=== PATIENT | male | born 1970 | race Caucasian/White ===

== ENCOUNTER 2017-09-12 07:07 | Day surgery (SDC) | payer OTHER ==
[~2017-09-12] VITALS: Ht 170.2 cm; Wt 74.4 kg
[2017-09-12] MEDS ORDERED: GLIP5TER PO (08:22)
[2017-09-12] MEDS ORDERED: GLU500 PO (08:22)
[2017-09-12] MEDS ORDERED: LIDOCAINE 2% 100 MG/5 ML UJET TP ONE (08:45)
[2017-09-12] MEDS ORDERED: fentaNYL 0.05 MG/ML VIAL ONE (09:00)
[2017-09-12] MEDS ORDERED: fentaNYL 0.05 MG/ML VIAL IVP ONE (10:00)
== END 2017-09-12 10:10 | disposition home or self-care (01) ==
LOC: MDS 07:07 → MMU 07:22 → MDS 10:10
PROVIDERS: ATTEND Internal Medicine Gastroenterology
DX: D12.3 Benign neoplasm of transverse colon (principal); E11.9 Type 2 diabetes mellitus without complications; E66.3 Overweight; I10 Essential (primary) hypertension; Z90.49 Acquired absence of other specified parts of digestive tract; F17.210 Nicotine dependence, cigarettes, uncomplicated; Z72.89 Other problems related to lifestyle; Z79.84 Long term (current) use of oral hypoglycemic drugs; Z68.26 Body mass index [BMI] 26.0-26.9, adult
CPT/HCPCS: 45385; 82948; J3010

== ENCOUNTER 2019-05-22 12:48 | Emergency (ER) | payer OTHER ==
[~2019-05-22] VITALS: Ht 170.2 cm; Wt 81.2 kg
[~2019-05-22 12:48] MED LIST: GLIP5TER PO; GLU500 PO
[2019-05-22 12:52] VITALS: BP 153/105
--- NOTE | 2019-05-22 14:03 | NUR ---
Seen PCP today and reffered to ER for cough and shortness of breathe x 3 weeks. Current temperature 98.1. Med hx: DM and Asthma. PATIENT STATES PAIN OF 0/10 AT THIS TIME.PATIENT POSITIONED FOR COMFORT; HOB ELEVATED; BEDRAILS UP X1; BED DOWN. ER MD MADE AWARE OF PT STATUS.
--- NOTE | 2019-05-22 14:04 | NUR ---
Patient ambulated to bed 1. RN evaluating patient at bedside.
--- NOTE | 2019-05-22 14:14 | NUR ---
XRAY AT BEDSIDE
[2019-05-22] MEDS ORDERED: ALBUTEROL 0.083% 2.5 MG/3 ML NEBU INH ONE (15:10)
[2019-05-22] MEDS ORDERED: IPRATROPIUM 0.02% 0.5 MG/2.5 ML NEBU INH ONE (15:10)
--- NOTE | 2019-05-22 15:10 | NUR ---
Patient being reevaluated by DR MCCORD at bedside.
--- NOTE | 2019-05-22 15:25 | NUR ---
RT AT BEDSIDE FOR BREATHING TREATMENT.
--- NOTE | 2019-05-22 15:35 | NUR ---
C/O R BIG TOE PAIN. NOTIFIED DR MCCORD.
--- NOTE | 2019-05-22 15:40 | NUR ---
Patient being reevaluated by DR MCCORD at bedside.
--- NOTE | 2019-05-22 15:54 | NUR ---
Patient discharged with v/s stable. Written and verbal after care instructions given and explained. Patient alert, oriented and verbalized understanding of instructions. Ambulatory with steady gait. All questions addressed prior to discharge. ID band removed. Patient advised to follow up with PMD. Rx of AEROCHAMBER PLUS WITH MASK & PREDNISONE given. Patient educated on indication of medication including possible reaction and side effects. Opportunity to ask questions provided and answered.
[2019-05-22 15:55] VITALS: BP 140/96
== END 2019-05-22 15:54 | disposition home or self-care (01) ==
LOC: MED 12:48
DX: S91.201A Unspecified open wound of right great toe with damage to nail, initial encounter (principal); J20.9 Acute bronchitis, unspecified; R03.0 Elevated blood-pressure reading, without diagnosis of hypertension; J45.909 Unspecified asthma, uncomplicated; E11.9 Type 2 diabetes mellitus without complications; Z90.49 Acquired absence of other specified parts of digestive tract; Z79.84 Long term (current) use of oral hypoglycemic drugs; X58.XXXA Exposure to other specified factors, initial encounter; Y93.89 Activity, other specified; Y92.89 Other specified places as the place of occurrence of the external cause; Y99.8 Other external cause status
CPT/HCPCS: 71045; 82948; 94640; 99284; J7613; J7644; Q0092